=== PATIENT | male | born 1980 | race Caucasian/White ===

== ENCOUNTER 2019-12-18 18:22 | Emergency (ER) | payer BC, SELFPAY ==
[2019-12-18 18:27] VITALS: BP 138/80; PULSE 82; RESP 18; TEMP 36.9; O2SAT 98; BMI 20.9
--- NOTE | 2019-12-18 18:37 | [facility].EDGENADL ---
ED Disposition Clinical Impression: Chigger bites Contact dermatitis Qualifiers: Contact dermatitis type: allergic Contact dermatitis trigger: animal dander Qualified Code(s): L23.81 - Allergic contact dermatitis due to animal (cat) (dog) dander Disposition: Home, Self-Care Condition on Discharge: Good Instructions: DI for Contact Dermatitis Prescriptions: Hydrocortisone [Hydrocortisone 1% Cream 30gm Tube] 1 applicatio TP TID #30 gm Prescription Printed cephALEXin [Keflex 500mg Cap] 500 mg PO QID 7 Days #28 cap Prescription Printed methylPREDNISolone [Medrol 4mg tab] 4 mg PO DIRECTED #21 tab Prescription Printed - Critical Care Critical Care Time: No Attestation: On , the high probability of a clinically significant, sudden or life threatening deterioration of the following system(s) required my full and direct attention, intervention and personal management. The time I documented below is in addition to time spent performing reported procedures but includes the following listed in this critical care notation. Medical Decision Making - Medical Records Medical records reviewed: Yes: I reviewed the patient's medical records. - Marlo Inquiry Pt receiving controlled substance: No Vital Signs: 12/18/19 18:27 Temperature 98.5 F Temperature Source Oral Pulse Rate [Right Radial] 82 Respiratory Rate 18 Blood Pressure [Right Arm] 138/80 Blood Pressure Mean [Right Arm] 99 Blood Pressure Source [Right Arm] Automatic Cuff Blood Pressure Position [Right Arm] Sitting 02 Sat by Pulse Oximetry 98 Oxygen Delivery Method Room Air Orders (Tests/Meds): ED MEDICATIONS Discontinued Medications Generic Name Dose Route Start Last Admin Trade Name Freq PRN Reason Stop Dose Admin Diphenhydramine HCl 25 mg 12/18/19 18:34 Diphenhydramine 25mg Capsule PO 12/18/19 18:35 ONCE ONE Medical Decision Narrative: This is a 39-year-old male presenting to the emergency department with a rash. The findings are consistent with contact dermatitis secondary to chiggers which is consistent with the patient coming in contact while he was working. There is no dermatomal distribution. There is no extension of the wounds. No evidence of infection, however the patient states that he was submerged and dirty water while he was doing these tasks. Patient will be placed on prophylactic antibiotic, topical cream as well as steroid therapy. Patient is to follow-up with PCP. Given strict return precautions. Verbalized understanding. General Adult HPI - General Chief complaint: Skin/Abscess/Foreign Body Stated complaint: itching all over body Time Seen by Provider: 12/18/19 18:30 Mode of Arrival: Ambulatory Limitations: No Limitations Description of Symptoms (Recalled from ER Triage Doc. by RN): Pt reports itching all over her body x2 days. Pt reports itching started after helping a friend clean out their basement. Pt has open areas from reported scratching to jose legs, arms and abd. - History of Present Illness HPI narrative: This is a 39-year-old male presenting to the emergency department with a rash on his arms and legs. The patient states that this occurred 3 days ago when he was working at a friend's house. He states that he was doing some yard work and helping unload his basement because it flooded. Patient started noticing some red rashes over his legs and his arms bilaterally. He states that they have been very itchy. He has not put anything on that or taking anything for the itch. He denies any other trauma or injuries. Up-to-date on tetanus immunization. Denies any fevers or chills. Not have any chest pain or shortness of breath. No abdominal pain or vomiting. No headache or change in vision. - Related Data Previous Rx's Medication Instructions Recorded Hydrocortisone [Hydrocortisone 1% 1 applicatio TP TID #30 gm 12/18/19 Cream 30gm Tube] cephALEXin [Keflex 500mg Cap] 500 m
[2019-12-18 19:18] VITALS: BP 121/75; PULSE 73; RESP 16; TEMP 36.8
== END 2019-12-18 19:25 | disposition home or self-care (01) ==
PROVIDERS: Emergency Provider Emergency Medicine
DX: L23.81 Allergic contact dermatitis due to animal (cat) (dog) dander (principal); B88.0 Other acariasis
CPT/HCPCS: 99281